=== PATIENT | female | born 1955 | race Caucasian/White ===

== ENCOUNTER 2022-11-07 06:55 | Inpatient (IN) | payer BC, MEDICARE ==
[2022-11-04 11:52] LABS: BASOPHILS % 0.3 % (0.0-1.0); EOSINOPHILS # (AUTO) 0.1 (0.0-0.4); EOSINOPHILS % 0.7 % (0.0-6.0); HEMATOCRIT 43.9 % (34.2-44.1); LYMPHOCYTES # (AUTO) 3.7 (1.0-3.2); LYMPHOCYTES % 51.2 % (18.0-39.1); MEAN CORPUSCULAR HEMOGLOBIN 27.7 pg (28-32); MEAN CORPUSCULAR HGB CONC 31.9 g/dL (31-35); MEAN CORPUSCULAR VOLUME 86.9 fL (81-99); MONOCYTES # (AUTO) 0.3 (0.2-0.8); NEUTROPHILS # (AUTO) 3.2 (2.1-6.9); NEUTROPHILS % 43.5 % (38.7-80.0); PLATELET COUNT 174 x10e3/uL (140-360); RED BLOOD COUNT 5.05 x10e6/uL (3.6-5.1)
[2022-11-04 12:37] LABS: ALBUMIN 4.5 g/dL (3.5-5.0); ALBUMIN/GLOBULIN RATIO 1.2 (0.8-2.0); ANION GAP 13.3 mmol/L (8-16); CALCIUM 10.1 mg/dL (8.4-10.2); CREATININE, SERUM 0.78 mg/dL (0.57-1.11); POTASSIUM 5.3 mmol/L (3.5-5.1)
[~2022-11-07] VITALS: Ht 165.1 cm; Wt 59.0 kg
[~2022-11-07 06:55] MED LIST: CRESTOR10 MG PO; FLAGYL250 MG PO; LEVAQUIN500 MG PO; LEVOCETIRIZINE D5 MG PO; LINZESS145 MCG PO; LIPITOR10 MG PO; LISINOPRIL10 MG PO; NEOMYCIN SULFA500 MG PO; PREVACID15 MG PO; TEMAZEPAM15 MG PO
[2022-11-07] MEDS ORDERED: LACTATED RINGER'S 1,000 ML ONE (08:15)
[2022-11-07] MEDS ORDERED: LIDOCAINE 1% W/EPINEPHRINE 20 ML VIAL ONE (09:14)
[2022-11-07] MEDS ORDERED: BUPIVACAINE HCL 0.5% INJ 30 ML VIAL INJ ONE (09:14)
[2022-11-07] MEDS ORDERED: ACETAMINOPHEN 1000 MG/100 ML 100 ML IV ONE (09:26)
[2022-11-07] MEDS ORDERED: SUGAMMADEX SODIUM 200 MG/2 ML VIAL IV ONE (11:05)
[2022-11-07] MEDS ORDERED: LINACLOTIDE 145 MCG CAPSULE PO PRN (11:15)
[2022-11-07] MEDS ORDERED: FENTANYL CITRATE/PF 100MCG/2 ML INJ ONE ×2 (11:32→11:37)
[2022-11-07] MEDS ORDERED: MIDAZOLAM HCL 2 MG/2 ML VIAL ONE (11:32)
[2022-11-07] MEDS ORDERED: KETOROLAC TROMETHAMINE 30 MG/ML VIAL ONE (12:06)
[2022-11-07] MEDS ORDERED: Morphine 4mg INJECTION 4 MG/ML INJ ONE (12:22)
[2022-11-07 13:09] VITALS: BP 146/75; PULSE 94; RESP 17; TEMP 97.9; O2SAT 100
[2022-11-07 13:14] VITALS: BP 146/75; PULSE 94; RESP 17; TEMP 97.9; O2SAT 100
[2022-11-07 13:15] VITALS: BP 146/75; PULSE 94; RESP 17; TEMP 97.9; O2SAT 100
[2022-11-07] MEDS: HYDROCODONE/APAP 5MG-325MG TAB PO PRN (14:16)
[2022-11-07] MEDS: DEXTROSE 5%/LACTATED RINGERS 1,000 ML IV SCH (14:16)
[2022-11-07] MEDS: Cefoxitin 2 G in SODIUM CHLORIDE 0.9% 100 ML IV SCH (15:55)
[2022-11-07] MEDS ORDERED: EPHEDRINE SULFATE INJ 50 MG/ML VIAL ONE (15:58)
[2022-11-07] MEDS ORDERED: LIDOCAINE HCL 2% LOCAL INJ 5 ML SDV VIAL INJ ONE (15:58)
[2022-11-07] MEDS ORDERED: ROCURONIUM BROMIDE 10 MG/ML 5ML VIAL IV ONE (15:58)
[2022-11-07] MEDS ORDERED: PROPOFOL IV EMULSION 10 MG/ML 20 ML VIAL ONE (15:58)
[2022-11-07] MEDS ORDERED: ONDANSETRON HCL INJ 2MG/ML 2ML 2 MG/ML VIAL ONE (15:58)
[2022-11-07] MEDS ORDERED: PHENYLEPHRINE HCL 1% 10 MG/ML VIAL ONE (15:58)
[2022-11-07] MEDS ORDERED: POVIDONE IODINE 0.05% 0.05 % ML PO ONE (15:58)
[2022-11-07] MEDS ORDERED: DEXAMETHASONE SOD PHOS INJ 4 MG/ML SDV ONE (15:58)
[2022-11-07] MEDS ORDERED: SEVOFLURANE INHAL SOLN 250 ML PEN BTL ONE (15:58)
[2022-11-07 16:47] VITALS: BP 96/56; PULSE 73; RESP 16; TEMP 97.5; O2SAT 99
[2022-11-07] MEDS: ACETAMINOPHEN 1000 MG/100 ML IV SCH (17:28)
[2022-11-07 20:00] VITALS: BP 107/86; PULSE 81; RESP 20; TEMP 97.9; O2SAT 99
[2022-11-07 20:27] VITALS: PULSE 80; RESP 18; O2SAT 99
[2022-11-07] MEDS: TEMAZEPAM 15 MG CAP PO SCH (20:58)
[2022-11-07] MEDS: HYDROMORPHONE 1MG/1ML INJ IV PRN (20:58)
[2022-11-08] VITALS (8 sets, daily range): BP systolic 88–172; BP diastolic 47–79; PULSE 61–90; RESP 15–20; TEMP 97.6–98.2; O2SAT 98–100
[2022-11-08] MEDS: Cefoxitin 2 G in SODIUM CHLORIDE 0.9% 100 ML IV SCH ×3 (00:29→09:56)
[2022-11-08] MEDS: ACETAMINOPHEN 1000 MG/100 ML IV SCH ×3 (00:29→12:00)
[2022-11-08] MEDS: DEXTROSE 5%/LACTATED RINGERS 1,000 ML IV SCH ×3 (00:33→14:34)
[2022-11-08] MEDS: HYDROMORPHONE 1MG/1ML INJ IV PRN ×4 (03:23→21:19)
[2022-11-08] MEDS: ONDANSETRON HCL INJ 2MG/ML 2ML 2 MG/ML VIAL IV PRN ×4 (03:23→21:18)
[2022-11-08 05:22] LABS: BASOPHILS % 0.1 % (0.0-1.0); EOSINOPHILS % 0.1 % (0.0-6.0); HEMATOCRIT 32.9 % (34.2-44.1); HEMOGLOBIN 10.4 g/dL (12.0-16.0); LYMPHOCYTES # (AUTO) 2.2 (1.0-3.2); LYMPHOCYTES % 19.3 % (18.0-39.1); MEAN CORPUSCULAR HEMOGLOBIN 27.6 pg (28-32); MEAN CORPUSCULAR HGB CONC 31.6 g/dL (31-35); MEAN CORPUSCULAR VOLUME 87.3 fL (81-99); MONOCYTES # (AUTO) 0.8 (0.2-0.8); NEUTROPHILS # (AUTO) 8.4 (2.1-6.9); NEUTROPHILS % 73.3 % (38.7-80.0); PLATELET COUNT 151 x10e3/uL (140-360); RED BLOOD COUNT 3.77 x10e6/uL (3.6-5.1); RED CELL DISTRIBUTION WIDTH 14.2 % (11.7-14.4)
[2022-11-08 05:40] LABS: ANION GAP 10.5 mmol/L (8-16); CALCIUM 8.2 mg/dL (8.4-10.2); CREATININE, SERUM 0.74 mg/dL (0.57-1.11); POTASSIUM 4.5 mmol/L (3.5-5.1)
[2022-11-08] MEDS: PANTOPRAZOLE SOD 40 MG TABEC PO SCH (08:34)
[2022-11-08] MEDS: LISINOPRIL 20 MG TAB PO SCH ×2 (08:45→21:15)
[2022-11-08] MEDS ORDERED: SIMVASTATIN 20 MG TAB PO SCH (21:00)
[2022-11-08] MEDS: TEMAZEPAM 15 MG CAP PO SCH (21:17)
[2022-11-09] VITALS (10 sets, daily range): BP systolic 103–145; BP diastolic 45–77; PULSE 65–96; RESP 15–19; TEMP 97.3–99.1; O2SAT 95–100
[2022-11-09] MEDS: DEXTROSE 5%/LACTATED RINGERS 1,000 ML IV SCH (03:58)
[2022-11-09] MEDS: ONDANSETRON HCL INJ 2MG/ML 2ML 2 MG/ML VIAL IV PRN ×3 (08:42→21:00)
[2022-11-09] MEDS: PANTOPRAZOLE SOD 40 MG TABEC PO SCH (08:42)
[2022-11-09] MEDS: HYDROMORPHONE 1MG/1ML INJ IV PRN ×3 (08:43→21:00)
[2022-11-09] MEDS: GABAPENTIN 100 MG CAP PO SCH ×3 (11:22→20:59)
[2022-11-09] MEDS: ENOXAPARIN SOD INJ 40 MG/0.4 ML SYR SC SCH (17:17)
[2022-11-09] MEDS: TEMAZEPAM 15 MG CAP PO SCH (20:59)
[2022-11-10] VITALS (9 sets, daily range): BP systolic 107–167; BP diastolic 62–85; PULSE 79–94; RESP 16–20; TEMP 98.4–99; O2SAT 95–99
[2022-11-10 05:24] LABS: BASOPHILS % 0.2 % (0.0-1.0); EOSINOPHILS # (AUTO) 0.1 (0.0-0.4); EOSINOPHILS % 0.9 % (0.0-6.0); HEMATOCRIT 33.5 % (34.2-44.1); HEMOGLOBIN 10.8 g/dL (12.0-16.0); LYMPHOCYTES # (AUTO) 3.4 (1.0-3.2); LYMPHOCYTES % 39.9 % (18.0-39.1); MEAN CORPUSCULAR HEMOGLOBIN 27.9 pg (28-32); MEAN CORPUSCULAR HGB CONC 32.2 g/dL (31-35); MEAN CORPUSCULAR VOLUME 86.6 fL (81-99); MONOCYTES # (AUTO) 0.5 (0.2-0.8); MONOCYTES % 5.8 % (4.4-11.3); NEUTROPHILS # (AUTO) 4.5 (2.1-6.9); PLATELET COUNT 136 x10e3/uL (140-360); RED BLOOD COUNT 3.87 x10e6/uL (3.6-5.1)
[2022-11-10 05:44] LABS: ANION GAP 12.1 mmol/L (8-16); CALCIUM 8.8 mg/dL (8.4-10.2); CREATININE, SERUM 0.83 mg/dL (0.57-1.11); POTASSIUM 4.1 mmol/L (3.5-5.1)
[2022-11-10] MEDS: PANTOPRAZOLE SOD 40 MG TABEC PO SCH (10:11)
[2022-11-10] MEDS: LISINOPRIL 20 MG TAB PO SCH (10:12)
[2022-11-10] MEDS: GABAPENTIN 100 MG CAP PO SCH ×3 (10:12→21:28)
[2022-11-10] MEDS: HYDROCODONE/APAP 5MG-325MG TAB PO PRN ×2 (14:53→21:28)
[2022-11-10] MEDS: ENOXAPARIN SOD INJ 40 MG/0.4 ML SYR SC SCH (16:43)
[2022-11-10] MEDS: TEMAZEPAM 15 MG CAP PO SCH (21:28)
[2022-11-11] VITALS (9 sets, daily range): BP systolic 115–156; BP diastolic 68–82; PULSE 73–91; RESP 17–20; TEMP 97.8–98.2; O2SAT 96–100
[2022-11-11] MEDS: ONDANSETRON HCL INJ 2MG/ML 2ML 2 MG/ML VIAL IV PRN (01:17)
[2022-11-11] MEDS: HYDROMORPHONE 1MG/1ML INJ IV PRN (01:17)
[2022-11-11] MEDS: PANTOPRAZOLE SOD 40 MG TABEC PO SCH (06:33)
[2022-11-11] MEDS: LISINOPRIL 20 MG TAB PO SCH (09:57)
[2022-11-11] MEDS: GABAPENTIN 100 MG CAP PO SCH ×3 (09:57→21:14)
[2022-11-11] MEDS: HYDROCODONE/APAP 5MG-325MG TAB PO PRN (15:18)
[2022-11-11] MEDS: ENOXAPARIN SOD INJ 40 MG/0.4 ML SYR SC SCH (16:24)
[2022-11-11] MEDS: TEMAZEPAM 15 MG CAP PO SCH (21:14)
[2022-11-12] VITALS: BP 126/74; PULSE 67; RESP 16; TEMP 97.9; O2SAT 99
[2022-11-12] MEDS: HYDROCODONE/APAP 5MG-325MG TAB PO PRN ×2 (03:26→08:18)
[2022-11-12 04:00] VITALS: BP 117/72; PULSE 70; RESP 17; TEMP 98.3; O2SAT 96
[2022-11-12] MEDS: ONDANSETRON HCL INJ 2MG/ML 2ML 2 MG/ML VIAL IV PRN (06:06)
[2022-11-12] MEDS ORDERED: ULTRAM 50MG50 MG PO (06:09)
[2022-11-12] MEDS ORDERED: PANTOPRAZOLE SOD 40 MG TABEC PO SCH (06:30)
[2022-11-12 08:13] VITALS: BP 128/74; PULSE 64; RESP 17; TEMP 97.5; O2SAT 96
[2022-11-12] MEDS: GABAPENTIN 100 MG CAP PO SCH (08:17)
[2022-11-12] MEDS: LISINOPRIL 20 MG TAB PO SCH (08:18)
[2022-11-12 09:00] VITALS: BP 128/74; PULSE 64; RESP 17; TEMP 97.5; O2SAT 96
== END 2022-11-12 09:16 | disposition home or self-care (01) | DRG 331 ==
LOC: OR 06:55 → PACU V 12:34 → MED/SURG 12:44
PROVIDERS: ADMIT Surgery; ATTEND Surgery
PROC: 0DTG4ZZ Resection of Left Large Intestine, Percutaneous Endoscopic Approach (ICD-10-PCS; principal; 2022-11-07 10:06)
DX: K57.32 Diverticulitis of large intestine without perforation or abscess without bleeding (principal); K21.9 Gastro-esophageal reflux disease without esophagitis; I10 Essential (primary) hypertension; E78.5 Hyperlipidemia, unspecified; M19.90 Unspecified osteoarthritis, unspecified site; Z88.0 Allergy status to penicillin; Z20.822 Contact with and (suspected) exposure to COVID-19
CPT/HCPCS: 0223U; 36415; 71046; 80048; 80053; 85025; 88305; 88307; 93005; 94799; J0694; J1100; J1170; J1650; J1885; J2001; J2250; J2270; J2370; J2405; J7050